=== PATIENT | male | born 1965 | race Two or more races ===

== ENCOUNTER 2017-08-11 14:05 | Outpatient (CLI) | payer OTHER | END 2017-08-11 14:18 | disposition home or self-care (01) | LOC: RAD 14:05 | DX: M12.89 Other specific arthropathies, not elsewhere classified, multiple sites (principal); M19.90 Unspecified osteoarthritis, unspecified site ==

== ENCOUNTER 2018-02-01 22:36 | Emergency (ER) | payer OTHER ==
[~2018-02-01] VITALS: Ht 172.7 cm; Wt 127.0 kg
[2018-02-01] MEDS ORDERED: TOPROL XL200 MG (22:52)
[2018-02-01] MEDS ORDERED: AVALIDE 300-121 EACH (22:52)
[2018-02-02] MEDS ORDERED: CEFUROXIME500 MG PO (02:19)
[2018-02-02] MEDS ORDERED: MUPIROCIN22 GM TOP ×2 (02:21→02:22)
== END 2018-02-02 02:23 | disposition home or self-care (01) ==
LOC: ER 22:36
DX: L03.116 Cellulitis of left lower limb (principal)

== ENCOUNTER 2018-03-26 12:12 | Emergency (ER) | payer OTHER ==
[~2018-03-26] VITALS: Ht 172.7 cm; Wt 124.7 kg
[~2018-03-26 12:12] MED LIST: AVALIDE 300-121 EACH; CEFUROXIME500 MG PO; MUPIROCIN22 GM TOP; TOPROL XL200 MG
[2018-03-26] MEDS ORDERED: ASPIR 8181 MG (12:26)
[2018-03-26] MEDS ORDERED: LIPITOR20 MG (12:26)
== END 2018-03-26 16:20 | disposition home or self-care (01) ==
LOC: ER 12:12
DX: N45.1 Epididymitis (principal); N50.811 Right testicular pain

== ENCOUNTER 2018-05-01 09:42 | Outpatient (CLI) | payer OTHER ==
[~2018-05-01 09:42] MED LIST changes: +ASPIR 8181 MG; +LIPITOR20 MG
== END 2018-05-01 09:48 | disposition home or self-care (01) ==
LOC: LAB 09:42
DX: R10.9 Unspecified abdominal pain (principal)

== ENCOUNTER 2018-05-04 07:00 | Outpatient (CLI) | payer OTHER | END 2018-05-04 08:28 | disposition home or self-care (01) | LOC: TOM 07:00 | DX: N41.8 Other inflammatory diseases of prostate (principal); R10.9 Unspecified abdominal pain | CPT/HCPCS: 72193; Q9965 ==

== ENCOUNTER 2018-05-04 08:42 | Outpatient (CLI) | payer OTHER | END 2018-05-04 08:53 | disposition home or self-care (01) | LOC: LAB 08:42 | DX: I10 Essential (primary) hypertension (principal) ==

== ENCOUNTER 2018-07-13 14:49 | Outpatient (CLI) | payer OTHER | END 2018-07-13 14:53 | disposition home or self-care (01) | LOC: RAD 14:49 | DX: M25.561 Pain in right knee (principal) ==

== ENCOUNTER 2018-08-25 09:13 | Outpatient (CLI) | payer OTHER | END 2018-08-25 09:18 | disposition home or self-care (01) | LOC: LAB 09:13 | DX: R97.20 Elevated prostate specific antigen [PSA] (principal) ==

== ENCOUNTER → 2019-01-28 10:53 | Outpatient (CLI) | payer OTHER | END | disposition home or self-care (01) | LOC: LAB 10:53 | DX: R10.84 Generalized abdominal pain (principal) ==

== ENCOUNTER 2019-02-03 08:34 | Outpatient (CLI) | payer OTHER | END 2019-02-03 08:40 | disposition home or self-care (01) | LOC: TOM 08:34 | DX: R10.84 Generalized abdominal pain (principal) | CPT/HCPCS: 74160; Q9965 ==

== ENCOUNTER 2019-02-15 09:33 | Outpatient (CLI) | payer OTHER | END 2019-02-15 10:00 | disposition home or self-care (01) | LOC: RAD 09:33 | DX: N20.0 Calculus of kidney (principal); J18.0 Bronchopneumonia, unspecified organism ==

== ENCOUNTER 2019-02-24 12:52 | Outpatient (CLI) | payer OTHER | END 2019-02-24 13:09 | disposition home or self-care (01) | LOC: EKG 12:52 | DX: I10 Essential (primary) hypertension (principal) ==